=== PATIENT | female | born 1950 | race Caucasian/White ===

== ENCOUNTER 2018-05-18 04:14 | Emergency (ER) | payer MEDICARE, SELFPAY ==
[2018-05-18 04:17] VITALS: BP 196/81; PULSE 83; RESP 16; TEMP 36.4; O2SAT 94; BMI 24.7
--- NOTE | 2018-05-18 04:37 | ED.VISSUMM ---
- ER Visit Summary Date of Service: 05/18/18 Chief Complaint: [Left ear pain] History of Present Illness: The patient is a 68 F [who presents the emergency department with left ear pain. It started on Saturday. She was seen in urgent care and her ear was irrigated. She has had increasing pain and swelling. Tonight she could not sleep because of throbbing pain in her ear and her ear canal is very swollen. No fevers or chills she is otherwise healthy.] Physical Examination: [] Blood pressure 196/81 other vitals within normal limits Examination of the left ear reveals external ear canal which is swollen shut there is pain with movement pain with touch there is no erythema of the pinna the mastoid is nontender No lymphadenopathy Test Results: [] Emergency Department Course and Treatment: [Patient was given tramadol for pain. Wick was placed in neomycin/ polymyxin B /hC was ordered.] Treatment Plan: [] Disposition: [] Impression: [] This note was generated with [employer] dictation software. It may contain incorrect words, spelling, and punctuation that were not noted in review of the chart prior to signing ED Disposition - Plan for ED Patient: Chief Complaint: Ear Problem
[2018-05-18] MEDS: Neomycin Sulfate/Polymyxin/Hc Susp 10 ML Bottle 4 DRP OTIC (04:41)
[2018-05-18] MEDS: traMADol 50 MG Tablet PO (04:41)
--- NOTE | 2018-05-18 04:56 | ED.DEP ---
ED Disposition - Plan for ED Patient: Chief Complaint: Ear Problem Instructions: ED Otitis Externa Prescriptions: traMADol [Ultram] 50 mg PO Q8H PRN PRN 2 Days #10 tablet PRN Reason: Pain Neomycin/Polymyxin B/Hydrocort [Whnnoccj-Eilmvuzvm-Ut Ear Susp] 5 ml OT 4X/DAY 7 Days drops.susp Referrals: Molina Gilbert [Other] - 5-7 Days
--- NOTE | 2018-05-18 04:59 | DCINST.ED_ITS ---
ED Disposition - Plan for ED Patient: Chief Complaint: Ear Problem Instructions: ED Otitis Externa Prescriptions: traMADol [Ultram] 50 mg PO Q8H PRN PRN 2 Days #10 tablet PRN Reason: Pain Neomycin/Polymyxin B/Hydrocort [Eskrpswk-Rtmjlswzv-Su Ear Susp] 5 ml OT 4X/DAY 7 Days drops.susp Referrals: Molina Gilbert [Other] - 5-7 Days
--- NOTE | 2018-05-18 05:08 | ED.DEP ---
ED Disposition - Plan for ED Patient: Chief Complaint: Ear Problem Instructions: ED Otitis Externa Prescriptions: traMADol [Ultram] 50 mg PO Q8H PRN PRN 2 Days #10 tablet PRN Reason: Pain Neomycin/Polymyxin B/Hydrocort [Skthhspd-Ovqevahzy-Eh Ear Susp] 5 ml OT 4X/DAY 7 Days drops.susp Referrals: Jean-Claude Lama MD [STAFF PHYSICIAN] - 5-7 Days
[2018-05-18 05:13] VITALS: BP 177/88; PULSE 78; RESP 16; O2SAT 97
== END 2018-05-18 05:16 | disposition home or self-care (01) ==
PROVIDERS: Emergency Provider Emergency Medicine
DX: H60.92 Unspecified otitis externa, left ear (principal); K21.9 Gastro-esophageal reflux disease without esophagitis; Z79.899 Other long term (current) drug therapy
CPT/HCPCS: 99282